=== PATIENT | male | born 1945 | race Caucasian/White ===

== ENCOUNTER 2018-06-10 10:19 | Emergency (ER) | payer MEDICARE, SELFPAY ==
[2018-06-10 10:26] VITALS: BP 147/88; PULSE 64; RESP 15; TEMP 36.7; O2SAT 98
--- NOTE | 2018-06-10 10:40 | ED.GENADUL_ITS ---
Discharge Plan Disposition Patient Disposition: HOME Condition: Good Discharge Details Chief Complaint: PsychEval Clinical Impression: Depression Primary Care Provider: Bassem Dowling ED Provider: Humberto Corrales Home Meds and New Rx's Prescriptions: No Action fluoxetine 40 mg Capsule 40 mg PO DAILY RF: 0 bupropion HCl [Wellbutrin SR] 100 mg Tablet Extended Release 12 Hr 100 mg PO DAILY RF: 0 temazepam 15 mg Capsule 15 mg PO HS PRN PRNRF: 0 levothyroxine 50 mcg Tablet 50 mcg PO DAILY RF: 0 lisinopril-hydrochlorothiazide 10-12.5 mg Tablet 1 tab PO DAILY RF: 0 Discharge Instructions Instructions: Depression (ED) Additional Instructions: Please continue to take her home medications. Please follow-up with your family doctor for evaluation of your thyroid levels. Please follow-up with your psychiatrist/psychologist as soon as possible for reassessment on Tuesday. If you notice any worsening of your symptoms, or any new symptoms such as wanting to take your life, wanting to hurt someone else, vomiting, diarrhea, fever, chills, shortness of breath, chest pain, numbness, weakness, or fainting , please return immediately to the emergency department for reevaluation. Please follow up with your primary care provider as soon as possible for reassessment and reevaluation. As always, it was a pleasure participating in your medical care today. Referrals: Bassem Dowling [Primary Care Provider] - Medical Decision Making This is a very pleasant 73-year-old male who presents for evaluation of depression. The patient states that for the last 6 months he has felt very depressed, it is notably worsened over the last week and a half. The patient was started on Wellbutrin 1 week ago, and has been taking this as directed. He does have thyroid disease/hypothyroidism. He denies any homicidal or suicidal ideations. He feels like he is at the end of his rope. He demonstrates clear signs and symptoms of anhedonia, as well as concerning symptoms of notable depression without suicidality. We have consulted our mental health advisors to come to assess the patient. We will evaluate for any potential organic cause of his symptomatology. 11:42 AM The patient has been seen and assessed by his mental health specialist they feel that he is appropriate for discharge home with close follow-up on Tuesday. I do feel that this is appropriate as well. A safety plan has been put in place with his was at bedside, and the patient. The patient's TSH is slightly elevated, suggesting that his thyroid may be minimally underdose, however it is not notably elevated, I do not think that this is the cause of his symptomatology. I feel that is most likely psychologic and he is suffering from depression without suicidality. Patient will be discharged home with close follow-up with a psychiatrist, as well as his primary care provider. We discussed red flags for which to return the patient understands I have extensively reviewed the treatment plan and discharge instructions with the patient and their family. I have addressed all patient concerns at this time. The patient and family was made aware of what symptoms to monitor for that would warrant a return to the emergency department. Discussed the plan with the patient and family, they demonstrate verbal understanding and agreement with our assessment and plan at this time. HPI General Date/Time Provider Initiated Documentation: 06/10/18 10:22 . HPI Narrative: This is a 73-year-old male with a past medical history of hypothyroidism, anxiety, hypertension, and depression who is once admitted 10 years ago for depression and suicidal ideations. He presents today for depression. He states that for the last 6 months he has been feeling down, and is gradually been worsening. Roughly 1 week ago he was started on Wellbutrin in addition to his regular fluoxetine. He has been taking his levothyroxine and hypertension medications as directed. He states that in spite of this new medication he feels quite a bit worse, he states that he does not have any energy to do anything throughout the day. He does not want to wake up, feed himself, bathe or take care of himself. He has lost interest in all things that bring jillian to him. He clearly demonstrates signs and symptoms concerning for anhedonia. He denies any current suicidal or homicidal ideations. He denies any plan for ending his life. States that he has been taking his medications as directed. He has had ECT therapy in the past, which has been beneficial. This is performed at [facility]. He denies any previous surgeries. He denies any pertinent family history. He has no other complaints at this time. Related Data Home Medications Medication Instructions Recorded Confirmed bupropion HCl [Wellbutrin SR] 100 mg PO DAILY 06/10/18 06/10/18 fluoxetine 40 mg PO DAILY 06/10/18 06/10/18 levothyroxine 50 mcg PO DAILY 06/10/18 06/10/18 lisinopril-hydrochlorothiazide 1 tab PO DAILY 06/10/18 06/10/18 temazepam 15 mg PO HS PRN PRN 06/10/18 06/10/18 Allergies Allergy/AdvReac Type Severity Reaction Status Date / Time phenelzine sulfate Allergy Intermediate Unverified 06/10/18 10:29 [From Nardil] codeine Allergy Unverified 06/10/18 10:29 MAOI CLASS Allergy Uncoded 06/10/18 10:29 General Stated Complaint: PsychEval ESTIVEN: 2 Review of Systems Review of Systems 10 point review of systems was performed, pertinent positives and negatives are noted in the history of present illness. [facility] Social History Smoking/Tobacco Use Status: Never Exam Narrative Exam Narrative: 1.Const: Well-nourished, Well-developed, appearing stated age 2.Eyes: PERRL, no conjunctival injection, and symmetrical lids. 3.ENT: Atraumatic external nose and ears. Moist MM. Neck: Symmetric, trachea midline, No thyromegaly. No thyroid nodules. 4.CVS: +S1/S2, No murmurs or gallops. Peripheral pulses 2+ and equal in all extremities. Brisk capillary refill in all extremities. 5.RESP: Unlabored respiratory effort. Clear to auscultation bilaterally. No wheezes rales or rhonchi 6.GI: Soft, Nontender/Nondistended, No hepatosplenomegaly. No guarding or rebound. 7.MSK: Normocephalic/Atraumatic, Extremities w/o deformity or ttp No cyanosis or clubbing, Normal movement of all extremities 8.Skin: Warm, Dry. No rashes or lesions. 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 Sensation grossly intact, no focal neurologic deficits. 10.Psych: (AAO) x3. Mood and affect is appear normal at this time. Certainly no signs of jaylen, severe anxiety.
[2018-06-10 10:49] LABS: Bilirubin Negative (Negative); Blood Negative (Negative); Clarity Clear; Glucose Negative (Negative); Ketones Negative (Negative); Leukocyte Esterase Negative (Negative); Nitrite Negative (Negative); Specific Gravity 1.015 (1.005-1.025); Urobilinogen 0.2 EU/dL (Up TO 0.2); pH 6.5 (5-8)
[2018-06-10 11:01] LABS: *AMPHETAMINES SCREEN URINE Negative (Negative); *BARBITURATES SCREEN URINE Negative (Negative); *BENZODIAZEPINES SCREEN URINE POSITIVE (Negative); Cannabinoids THC Negative (Negative); Cocaine Screen,Urine Negative (Negative); METHADONE URINE SCREEN Negative (Negative); OPIATES URINE SCREEN Negative (Negative)
[2018-06-10 11:04] LABS: Tricyclic Antidepressants Negative (Negative)
[2018-06-10 11:05] LABS: Abs Immature Grans 0.02 k/cumm (0.0-0.09); Absolute Basophil Count 0.02 k/cumm (0.0-0.2); Absolute Eosinophil Count 0.12 k/cumm (0.0-0.7); Absolute Lymphocyte Count 2.71 k/cumm (1.2-3.4); Absolute Monocyte Count 0.49 k/cumm (0.11-0.7); Absolute Neutrophil Count 4.55 k/cumm (1.2-6.7); Basophils % 0.3; Eosinophils % 1.5; HCT 47.1 % (40.0-50.0); HGB 17.2 g/dL (13.5-17.5); Immature Grans % 0.3; Lymphocytes % 34.3; Mean Corp. HGB Concentration 36.5 g/dL (32.0-36.0); Mean Corpuscular Hemoglobin 30.8 pg (27.0-33.0); Mean Corpuscular Volume 84.4 fL (80-95); Mean Platelet Volume 8.8 fL (8.0-11.0); Monocytes % 6.2; Neutrophils % 57.4; Platelet Count 253 x1000/uL (130-400); RBC 5.58 m/cumm (4.50-6.00); RBC Distribution Width 12.4 % (11.8-14.1); White Blood Cell Count 7.91 k/cumm (4.4-10.8)
[2018-06-10 11:23] LABS: Salicylate < 2.8 mg/dL (2.8-20.0)
[2018-06-10 11:26] LABS: ALT 26 U/L (12-78); AST 16 U/L (15-37); Albumin 4.2 g/dL (3.4-5.0); Alkaline Phosphatase 99 U/L (46-116); Anion Gap 4.7 mmol/L (3-11); BUN 23 mg/dL (7-18); Bilirubin, Total 0.7 mg/dL (0.2-1.0); CO2 31.3 mmol/L (21.0-32.0); Calcium 9.2 mg/dL (8.5-10.1); Chloride 101 mmol/L (98-107); Glucose 90 mg/dL (70-100); Potassium 4.6 mmol/L (3.5-5.1); Sodium 137 mmol/L (136-145); TSH 4.22 uIU/mL (0.358-3.74); Total Protein 7.2 g/dL (6.4-8.2)
[2018-06-10 11:29] LABS: Acetaminophen < 2 ug/mL (10-30)
[2018-06-10 11:33] LABS: ETHANOL BLOOD < 3.0 mg/dL (<3)
--- NOTE | 2018-06-10 15:48 | W.INMHPGNOTE ---
Mental Health Crisis Note Presenting Issue How did you arrive at the ED and why did you come: Patient arrived with his due to increase anxiety and depressive symptoms. Precipitating Factors Patient does not report suicidal or homicidal ideation. He has deep depression and is at his wit's end. Disposition BEHAVIOR: calm and complacent EYE CONTACT: good MOOD: depressed AFFECT: flat APPETITE: poor SLEEP(trouble falling/staying asleep: not reported Plan This patient is on a second week of his first being prescribed wellbutrin. He has become increasingly depressed and lost interest in his normal activities. He has been referred to a psychiatric nurse practioner at [facility] and he has an appointment with a therapist in community. He has care and support of his and he is willing to go home and wait until his scheduled appointments. This clinician spoke of all options available to help him if giuseppe faye chooses to go to a psychiatric facility after trying outpatient treatment. He will go home with the support of his and this clinician will call to check in , at their approval, with him tomorrow and make referral to [facility] as well. Signature Clinician's Name/Title: Katya Fox [facility], [facility] Emergency Services Clinician
--- NOTE | 2018-06-10 15:54 | MHPN_ITS ---
Mental Health Crisis Note Presenting Issue How did you arrive at the ED and why did you come: Patient arrived with his due to increase anxiety and depressive symptoms. Precipitating Factors Patient does not report suicidal or homicidal ideation. He has deep depression and is at his wit's end. Disposition BEHAVIOR: calm and complacent EYE CONTACT: good MOOD: depressed AFFECT: flat APPETITE: poor SLEEP(trouble falling/staying asleep: not reported Plan This patient is on a second week of his first being prescribed wellbutrin. He has become increasingly depressed and lost interest in his normal activities. He has been referred to a psychiatric nurse practioner at [facility] and he has an appointment with a therapist in community. He has care and support of his and he is willing to go home and wait until his scheduled appointments. This clinician spoke of all options available to help him if giuseppe faye chooses to go to a psychiatric facility after trying outpatient treatment. He will go home with the support of his and this clinician will call to check in , at their approval, with him tomorrow and make referral to [facility] as well. Signature Clinician's Name/Title: Katya Fox [facility], [facility] Emergency Services Clinician
== END 2018-06-10 12:00 | disposition home or self-care (01) ==
PROVIDERS: Emergency Provider Student in an Organized Health Care Education/Training Program; PCP Family Medicine
DX: F32.9 Major depressive disorder, single episode, unspecified (principal); I10 Essential (primary) hypertension
CPT/HCPCS: 80053; 80307; 99282; 80320; 80329; 81003; 84443; 85025

== ENCOUNTER 2018-08-17 15:19 | Outpatient (CLI) | payer MEDICARE, SELFPAY ==
[2018-08-17 17:32] LABS: Vitamin D 25 Total 29.9 ng/ml (30-100)
[2018-08-17 17:34] LABS: Folate 13.2 ng/mL (8.6-20.0); Vitamin B12 529 pg/mL (193-986)
== END 2018-08-17 15:39 ==
PROVIDERS: PCP Family Medicine; Visit Provider Nurse Practitioner Family
DX: E03.9 Hypothyroidism, unspecified (principal); E55.9 Vitamin D deficiency, unspecified; F33.9 Major depressive disorder, recurrent, unspecified; F41.1 Generalized anxiety disorder; F51.5 Nightmare disorder; R45.851 Suicidal ideations
CPT/HCPCS: 36415; 82306; 82607; 82746

== ENCOUNTER 2018-10-16 14:56 | Emergency (ER) | payer MEDICARE, SELFPAY ==
[2018-10-16 15:09] VITALS: BP 142/71; PULSE 70; RESP 16; TEMP 36.8; O2SAT 97
--- NOTE | 2018-10-16 15:23 | DI.CT_ITS ---
SYMPTOM/DIAGNOSIS: 7-8 FT FALL, RT THORAX /ABD PAIN, SEVERE CHEST CT: No rib or spine fracture is seen. No evidence of pneumothorax. There is mild respiratory motion, independent changes at the posterior lung bases. No pleural or pericardial effusions are seen. The heart and great vessels appear intact. IMPRESSION: Negative chest CT. ABDOMEN AND PELVIC CT: The liver, gallbladder, spleen, pancreas, kidneys and adrenals appear intact. An 8 mm cyst is incidentally noted at the lower pole of the right kidney. There is no free air or free fluid. The bladder is unremarkable. The prostate is enlarged. No fracture is identified. Degenerative changes are seen, greatest in the lumbar spine. IMPRESSION; No acute abnormality.
--- NOTE | 2018-10-16 15:23 | DI.CT_ITS ---
SYMPTOM/DIAGNOSIS: 7-8 FT FALL, RT THORAX/ABD PAIN, SEVERE NONCONTRAST HEAD CT: There is no evidence of skull fracture, intracranial hemorrhage. The ventricles are normal in size. There are no significant white matter changes. There is mild atrophy consistent with the patient's age. The sinuses and mastoid air cells appear clear. IMPRESSION: Negative head CT CT CERVICAL SPINE: There is no evidence of fracture or subluxation. Degenerative changes are present as well. There is bilateral neural foraminal narrowing greatest at C-6,7. There is no paraspinal hematoma. IMPRESSION: Degenerative changes. No acute abnormality.
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
[2018-10-16] MEDS: Ketorolac 15 MG/ML VIAL 7.5 MG IVP (15:38)
[2018-10-16] MEDS: Lactated Ringers 1,000 ML 150 ML IV (15:41)
[2018-10-16 15:47] LABS: Abs Immature Grans 0.04 k/cumm (0.0-0.09); Absolute Basophil Count 0.03 k/cumm (0.0-0.2); Absolute Eosinophil Count 0.08 k/cumm (0.0-0.7); Absolute Lymphocyte Count 2.02 k/cumm (1.2-3.4); Absolute Monocyte Count 0.72 k/cumm (0.11-0.7); Absolute Neutrophil Count 7.98 k/cumm (1.2-6.7); Basophils % 0.3; Eosinophils % 0.7; HCT 44.6 % (40.0-50.0); HGB 16.3 g/dL (13.5-17.5); Immature Grans % 0.4; Lymphocytes % 18.6; Mean Corp. HGB Concentration 36.5 g/dL (32.0-36.0); Mean Corpuscular Hemoglobin 30.1 pg (27.0-33.0); Mean Corpuscular Volume 82.3 fL (80-95); Monocytes % 6.6; Neutrophils % 73.4; Platelet Count 210 x1000/uL (130-400); RBC 5.42 m/cumm (4.50-6.00); RBC Distribution Width 12.9 % (11.8-14.1); White Blood Cell Count 10.87 k/cumm (4.4-10.8)
[2018-10-16 16:02] LABS: ALT 36 U/L (12-78); AST 30 U/L (15-37); Albumin 4.3 g/dL (3.4-5.0); Alkaline Phosphatase 97 U/L (46-116); Anion Gap 7.7 mmol/L (3-11); BUN 24 mg/dL (7-18); Bilirubin, Total 0.4 mg/dL (0.2-1.0); CO2 31.3 mmol/L (21.0-32.0); CREATININE 1.21 mg/dL (0.70-1.30); Calcium 9.1 mg/dL (8.5-10.1); Chloride 101 mmol/L (98-107); Estimated GFR 58.78 (mL/min/1.73m2); Glucose 98 mg/dL (70-100); Magnesium 2.2 mg/dL (1.8-2.4); Sodium 140 mmol/L (136-145); Total Protein 7.2 g/dL (6.4-8.2)
[2018-10-16] MEDS: Omnipaque 350 MG/ML 100 ML BTL IJ (16:15)
[2018-10-16 16:34] LABS: PTT Activated 21.9 sec (21.0-31.4); Prothrombin Time 10.4 sec (9.3-11.0)
--- NOTE | 2018-10-16 16:48 | DI.VRAD_ITS ---
EXAM: CT Head Without Contrast EXAM DATE/TIME: 10/16/2018 3:25 PM CLINICAL HISTORY: 73 years old, male; Injury or trauma; Fall; Initial encounter; Patient HX: 7-8 foot fall TECHNIQUE: Axial computed tomography images of the head/brain without contrast. Coronal and sagittal reformatted images were created and reviewed. COMPARISON: No relevant prior studies available. FINDINGS: Brain: Ventricles and the cortical sulci are within normal limits for the patient's age. There is no evidence of acute hemorrhage, mass or shift. There is no evidence of an acute cortical or major vascular territory infarct. There is minimal low attenuation involving the periventricular white matter which may be related to remote small vessel ischemic change/microangiopathy. No abnormal extra-axial collections are identified. Ventricles: Within normal limits. Bones/joints: There is no acute calvarial fracture Sinuses: There is no significant sinus opacification, fluid level nor intrasinus hemorrhage. Mastoid air cells: There is no significant mastoid opacification. Soft tissues: Subcutaneous soft tissues are unremarkable. Vasculature: Mild intracranial vascular calcification is noted. IMPRESSION: No acute findings EXAM: CT Cervical Spine Without Contrast EXAM DATE/TIME: 10/16/2018 3:25 PM CLINICAL HISTORY: 73 years old, male; Injury or trauma; Fall; Initial encounter; Patient HX: 7-8 foot fall TECHNIQUE: Axial computed tomography images of the cervical spine without intravenous contrast. Coronal and sagittal reformatted images were created and reviewed. COMPARISON: No relevant prior studies available. FINDINGS: Vertebrae: There is scoliosis. It is convex to the right in the thoracic spine. There is mild reversal of the cervical lordosis. There is mild anterolisthesis of C2 with respect to C3. There is no evidence of an acute fracture. There is no decrease of vertebral body height. There is no acute or destructive bony abnormality identified within the cervical spine. Discs/Spinal canal/Neural foramina: There is multilevel disc space narrowing within the cervical spine. Disc space narrowing is present at multiple levels but appears most prominent at C4-5 through C7-T1. There are disc osteophyte complexes, spondylitic changes of the endplates, uncovertebral and facet arthropathy. There is narrowing of the canal/stenosis at the level of the disc spaces. This is also present at multiple levels but spinal stenosis appears most prominent at C5-C6 where disc osteophyte complex is eccentric to the right posteriorly. Degenerative changes also lead to multilevel foraminal narrowing. Foraminal narrowing is present at multiple levels but appears slightly greater on the right than the left particularly at C4-5, C6-7, there is bilateral foraminal narrowing noted at C5-6 and C7-T1. Soft tissues: The exam was not tailored to evaluate the soft tissues of the neck. There is no evidence of discrete soft tissue mass. Lungs: No significant abnormality is identified at the lung apices. There is mild dependent atelectasis. Vasculature: Vascular calcification is noted at the carotid bifurcations. IMPRESSION: Cervical spondylosis, disc disease. No acute fracture identified. Degenerative changes lead to multilevel spinal and foraminal stenosis as described above. Dictated and Authenticated by: Shanon Hernandez MD. Ordering:TYRONE Watson MD
--- NOTE | 2018-10-16 16:56 | DI.VRAD_ITS ---
EXAM: CT Chest With Contrast EXAM DATE/TIME: 10/16/2018 4:19 PM CLINICAL HISTORY: 73 years old, male; Injury or trauma; Fall; Initial encounter; Patient HX: 7-8 foot fall, r thorax/abd pain, severe TECHNIQUE: Axial computed tomography images of the chest with intravenous contrast. Coronal and sagittal reformatted images were created and reviewed. COMPARISON: No relevant prior studies available. FINDINGS: Lungs: Bilateral dependent atelectasis. Pleural space: Normal. No pneumothorax. No pleural effusion. Heart: Normal. No cardiomegaly. No pericardial effusion. Aorta: Normal. No aortic aneurysm. Lymph nodes: Unremarkable. No enlarged lymph nodes. Bones/joints: Unremarkable. No acute fracture. Soft tissues: Unremarkable. IMPRESSION: No acute abnormality. EXAM: CT Abdomen and Pelvis With Contrast EXAM DATE/TIME: 10/16/2018 4:19 PM CLINICAL HISTORY: 73 years old, male; Injury or trauma; Fall; Initial encounter; Patient HX: 7-8 foot fall, r thorax/abd pain, severe TECHNIQUE: Axial computed tomography images of the abdomen and pelvis with intravenous contrast. Coronal and sagittal reformatted images were created and reviewed. COMPARISON: No relevant prior studies available. FINDINGS: Lower thorax: No acute findings. ABDOMEN: Liver: Normal. No mass. Gallbladder and bile ducts: Normal. No calcified stones. No ductal dilation. Pancreas: Normal. No ductal dilation. Spleen: Normal. No splenomegaly. Adrenals: Normal. No mass. Kidneys and ureters: 8 mm cyst at the lower pole of right kidney. Stomach and bowel: Diverticulosis of the sigmoid colon. Appendix: No evidence of appendicitis. PELVIS: Bladder: Unremarkable as visualized. Reproductive: Prostate is enlarged and measures 5.4 x 4.3 cm. Prostate is heterogeneous. ABDOMEN and PELVIS: Intraperitoneal space: Normal. No free air. No significant fluid collection. Bones/joints: Degenerative changes of the spine. Soft tissues: Unremarkable. Vasculature: Normal. No abdominal aortic aneurysm. Lymph nodes: Normal. No enlarged lymph nodes. IMPRESSION: No acute abdominal or pelvic abnormality. Dictated and Authenticated by: Sal Sethi MD. Ordering:TYRONE Watson MD
[2018-10-16] MEDS: Lidocaine 5% Patch 1 PATCH TP (17:09)
== END 2018-10-16 17:58 | disposition home or self-care (01) ==
PROVIDERS: Emergency Provider Emergency Medicine; PCP Family Medicine
DX: S20.211A Contusion of right front wall of thorax, initial encounter (principal); R10.11 Right upper quadrant pain; V00.321A Fall from snow-skis, initial encounter
CPT/HCPCS: 36415; 74177; 80053; 96361; 96374; 99285; 70450; 71260; 72125; 83735; 85025; 85610; 85730; 99284; J1885; J3490

== ENCOUNTER → 2018-11-21 10:59 | Outpatient (BNVA) | payer MEDICARE, SELFPAY | PROVIDERS: PCP Family Medicine; Referring Provider Family Medicine; Visit Provider Orthopaedic Surgery | DX: M79.602 Pain in left arm (principal); R20.0 Anesthesia of skin | CPT/HCPCS: 99213; 99214 ==

== ENCOUNTER 2018-11-23 00:34 | Outpatient (CLI) | payer MEDICARE, OTHER, SELFPAY ==
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
== END 2018-11-23 00:54 ==
PROVIDERS: PCP Family Medicine; Visit Provider Orthopaedic Surgery
DX: M79.602 Pain in left arm (principal); S19.80XD Other specified injuries of unspecified part of neck, subsequent encounter; R20.2 Paresthesia of skin; M50.31 Other cervical disc degeneration, high cervical region; M50.322 Other cervical disc degeneration at C5-C6 level; M50.323 Other cervical disc degeneration at C6-C7 level
CPT/HCPCS: 72141

== ENCOUNTER → 2018-11-30 08:40 | Outpatient (BNVA) | payer MEDICARE, OTHER, SELFPAY | PROVIDERS: PCP Family Medicine; Referring Provider Family Medicine; Visit Provider Orthopaedic Surgery | DX: S16.1XXD Strain of muscle, fascia and tendon at neck level, subsequent encounter (principal); V00.321D Fall from snow-skis, subsequent encounter | CPT/HCPCS: 99213 ==

== ENCOUNTER 2019-03-01 13:43 | Outpatient (CLI) | payer MEDICARE, OTHER, SELFPAY ==
[2019-03-02 10:14] LABS: PSA, Screening 2.4 ng/ml (0-6.5)
== END 2019-03-01 14:03 ==
PROVIDERS: PCP Family Medicine; Visit Provider Urology
DX: Z12.5 Encounter for screening for malignant neoplasm of prostate (principal)
CPT/HCPCS: 36415; 84153

== ENCOUNTER 2019-06-27 11:24 | Outpatient (REF) | payer MEDICARE, OTHER, SELFPAY ==
[2019-06-27 15:32] LABS: Lithium 0.22 mmol/L (0.60-1.20)
== END 2019-06-27 11:44 ==
LOC: NCHCN 11:24
PROVIDERS: PCP Family Medicine; Visit Provider Nurse Practitioner Family
DX: F43.10 Post-traumatic stress disorder, unspecified (principal); F33.41 Major depressive disorder, recurrent, in partial remission; F41.1 Generalized anxiety disorder; Z51.81 Encounter for therapeutic drug level monitoring; Z79.899 Other long term (current) drug therapy
CPT/HCPCS: 36415; 80178

== ENCOUNTER 2019-08-23 10:42 | Outpatient (REF) | payer MEDICARE, OTHER, SELFPAY ==
[2019-08-23 11:36] LABS: Lithium 0.23 mmol/L (0.60-1.20)
== END 2019-08-23 11:02 ==
LOC: NCHCN 10:42
PROVIDERS: PCP Family Medicine; Visit Provider Nurse Practitioner Family
DX: F33.41 Major depressive disorder, recurrent, in partial remission (principal); Z51.81 Encounter for therapeutic drug level monitoring
CPT/HCPCS: 80178

== ENCOUNTER → 2019-09-25 08:09 | Outpatient (BNVA) | payer MEDICARE, OTHER, SELFPAY | PROVIDERS: PCP Family Medicine; Referring Provider Nurse Practitioner Family; Visit Provider Psychiatry & Neurology Neurology | DX: G24.01 Drug induced subacute dyskinesia (principal); G25.71 Drug induced akathisia | CPT/HCPCS: 99204; 99215 ==

== ENCOUNTER 2019-09-26 22:13 | Outpatient (REF) | payer MEDICARE, SELFPAY ==
[2019-09-26 20:59] LABS: HCT 43.2 % (40.0-50.0); HGB 15.1 g/dL (13.5-17.5); Mean Corpuscular Hemoglobin 29.5 pg (27.0-33.0); Mean Corpuscular Volume 84.4 fL (80-95); Mean Platelet Volume 9.1 fL (8.0-11.0); Platelet Count 214 x1000/uL (130-400); RBC 5.12 m/cumm (4.50-6.00); RBC Distribution Width 13.3 % (11.8-14.1); White Blood Cell Count 7.68 k/cumm (4.4-10.8)
[2019-09-26 21:16] LABS: ALT 44 U/L (16-63); AST 31 U/L (15-37); Albumin 4.3 g/dL (3.4-5.0); Alkaline Phosphatase 99 U/L (46-116); Anion Gap 9.8 mmol/L (3-11); BUN 33 mg/dL (7-18); Bilirubin, Total 0.4 mg/dL (0.2-1.0); CO2 27.2 mmol/L (21.0-32.0); CREATININE 1.15 mg/dL (0.70-1.30); Calcium 8.7 mg/dL (8.5-10.1); Chloride 105 mmol/L (98-107); Glucose 88 mg/dL (74-106); Potassium 4.1 mmol/L (3.5-5.1); Sodium 142 mmol/L (136-145); TSH (W/Ref FT4) 4.53 uIU/mL (0.36-3.74); Total Protein 6.6 g/dL (6.4-8.2)
[2019-09-26 21:32] LABS: FREE T4 0.71 ng/dL (0.76-1.46)
== END 2019-09-26 22:33 ==
LOC: NCHCN 22:13
PROVIDERS: PCP Family Medicine; Visit Provider Family Medicine
DX: E03.9 Hypothyroidism, unspecified (principal); Z79.899 Other long term (current) drug therapy; B35.3 Tinea pedis
CPT/HCPCS: 80053; 85027; 84439; 84443

== ENCOUNTER 2019-09-27 02:23 | Outpatient (CLI) | payer MEDICARE, SELFPAY ==
--- NOTE | 2019-09-27 13:59 | DI.RAD_ITS ---
EXAM: XR CHEST 2V PA LATERAL XR CHEST 2V PA LATERAL CLINICAL HISTORY: COUGH X2 MOS, R05, ACUTE BRONCHITIS WITH BRONCHOSPASM, J20.9 COUGH X2 MOS, R05, ACUTE BRONCHITIS WITH BRONCHOSPASM, J20.9 TECHNIQUE: 2D digital imaging was performed. COMPARISON: CHEST 2 VIEWS PA,LAT from 01/19/2013 FINDINGS: The heart is not enlarged. The lungs are clear and well expanded. No pleural effusion seen. Mediastin al contours appear intact. IMPRESSION: Normal chest
== END 2019-09-27 02:43 ==
PROVIDERS: PCP Family Medicine; Visit Provider Family Medicine
DX: R05 Cough (principal); J20.9 Acute bronchitis, unspecified
CPT/HCPCS: 71046

== ENCOUNTER 2020-06-16 15:58 | Outpatient (REF) | payer MEDICARE, SELFPAY ==
[2020-06-18 14:14] LABS: Patient Race White; SARS-CoV-2 RNA Undetected (Undetected); SARS-CoV-2 Specimen Source Nasopharynx
== END 2020-06-16 16:18 ==
LOC: NCHCN 15:58
PROVIDERS: PCP Family Medicine; Visit Provider Nurse Practitioner Family
DX: R05 Cough (principal)
CPT/HCPCS: U0003

== ENCOUNTER 2020-07-24 11:06 | Outpatient (REF) | payer MEDICARE, SELFPAY ==
[2020-07-24 19:18] LABS: Calculated LDL 59 mg/dL (<100); Cholesterol 140 mg/dL (<200); HDL Cholesterol 68 mg/dL (40-60); TSH 1.85 uIU/mL (0.36-3.74); Triglyceride 65 mg/dL (<150)
[2020-07-24 19:31] LABS: Vitamin D 25 Total 34.8 ng/ml (30-100)
== END 2020-07-24 11:26 ==
LOC: NCHCN 11:06
PROVIDERS: Nurse Practitioner Family; PCP Family Medicine; Visit Provider Family Medicine
DX: E78.5 Hyperlipidemia, unspecified (principal); E03.9 Hypothyroidism, unspecified; R53.83 Other fatigue
CPT/HCPCS: 80061; 82306; 84443

== ENCOUNTER 2021-03-17 14:47 | Outpatient (CLI) | payer MEDICARE, SELFPAY ==
--- NOTE | 2021-03-17 14:30 | DI.RAD_ITS ---
Exam(s) XR SHOULDER RT COMPLETE 2+V EXAM: XR SHOULDER RT COMPLETE 2+V CLINICAL HISTORY: right shoulder pain TECHNIQUE: COMPARISON: No exams were available for comparison FINDINGS: Two views were obtained. There is severe narrowing of the cartilaginous joint space of the glenohume ral joint. There are very prominent marginal osteophytes of the glenoid and humeral head. There is mild subchondral sclerosis of the adjacent bones. Osseous loose bodies noted adjacent to acromioclavicular joint and distal end of the clavicle is elev ated relative to the acromion. Small ossific body also seen at the location of the coracoid clavicu lar ligament. IMPRESSION: Severe degenerative changes as described above. RADIATION DOSE DELIVERED: Total DLP
--- NOTE | 2021-03-17 14:30 | DI.RAD_ITS ---
Exam(s) XR SHOULDER LT COMPLETE 2+V EXAM: XR SHOULDER LT COMPLETE 2+V CLINICAL HISTORY: left shoulder pain TECHNIQUE: COMPARISON: CR XR SHOULDER RT COMPLETE 2+V from 03/17/2021 FINDINGS: Two views were obtained. There is severe loss of the cartilaginous joint space of the glenohumeral j oint prominent marginal osteophytes of humeral head and glenoid. There is mild subchondral sclerosis of the adjacent bones. There are moderate hypertrophic degenerative changes of the acromioclavicula r joint noted as well. IMPRESSION: Degenerative changes of glenohumeral and acromioclavicular joint as described above. RADIATION DOSE DELIVERED: Total DLP
== END 2021-03-17 14:48 | disposition home or self-care (01) ==
LOC: DIORS 14:47
PROVIDERS: PCP Nurse Practitioner Family; Referring Provider Nurse Practitioner Family; Visit Provider Student in an Organized Health Care Education/Training Program
DX: M19.011 Primary osteoarthritis, right shoulder (principal); M19.012 Primary osteoarthritis, left shoulder; M25.511 Pain in right shoulder; M25.512 Pain in left shoulder
CPT/HCPCS: 99203; 99213; 73030

== ENCOUNTER 2021-03-27 21:22 | Emergency (ER) | payer MEDICARE, SELFPAY ==
[2021-03-27 21:26] VITALS: BP 166/104; PULSE 68; RESP 16; TEMP 36.8; O2SAT 96
--- NOTE | 2021-03-27 22:15 | DI.RAD_ITS ---
Exam(s) XR TIB/FIB RT EXAM: XR TIB/FIB RT CLINICAL HISTORY: trauma, right lower leg pain. TECHNIQUE: 2D digital imaging was performed. COMPARISON: No exams were available for comparison FINDINGS: BONES: No acute fracture is present. No bony destructive lesion is seen. Visualized portion of knee a nd ankle joints are unremarkable. There are degenerative changes in the knee. SOFT TISSUE: A BB was used to addy the site of injury. No radiopaque foreign bodies are identified. No air is seen in the soft tissues. IMPRESSION: No acute abnormality. DATA REPOSITORY: RADIATION DOSE DELIVERED:
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
--- NOTE | 2021-03-27 23:59 | DI.VRAD_ITS ---
PROCEDURE INFORMATION: Exam: XR Right Tibia and Fibula Exam date and time: 03/27/2021 10:16 PM Age: 75 years old Clinical indication: Other: Trauma, right lower leg pain; Patient HX: Dropped aluminum ladder on leg a week ago, bb on lateral to addy lac TECHNIQUE: Imaging protocol: XR Right tibia and fibula. Views: 2 views. COMPARISON: No relevant prior studies available. FINDINGS: Bones/joints: No evidence of fracture. Knee and ankle are appropriately located. Narrowing and osteophytes noted in the medial compartment of the knee. Soft tissues: Mild soft tissue swelling noted in the calf. Laceration marked with a BB. Negative for soft tissue air at the site. IMPRESSION: No acute osseous abnormality. Dictated and Authenticated by: Nico Muñoz MD. Ordering:MARTA Monroy MD
== END 2021-03-28 00:30 | disposition home or self-care (01) ==
PROVIDERS: Emergency Provider Student in an Organized Health Care Education/Training Program; PCP Nurse Practitioner Family
DX: S81.811A Laceration without foreign body, right lower leg, initial encounter (principal); W45.8XXA Other foreign body or object entering through skin, initial encounter
CPT/HCPCS: 99283; 73590; 99282

== ENCOUNTER 2021-03-29 07:38 | Emergency (ER) | payer MEDICARE, SELFPAY ==
[2021-03-29 07:43] VITALS: BP 161/74; PULSE 67; RESP 16; TEMP 36.2; O2SAT 98
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
--- NOTE | 2021-03-29 08:45 | DI.RAD_ITS ---
Exam(s) XR TIB/FIB RT EXAM: XR TIB/FIB RT CLINICAL HISTORY: pain, injury fri, repeat xray. TECHNIQUE: 2D digital imaging was performed. COMPARISON: CR,XR XR TIB/FIB RT from 03/27/2021 FINDINGS: BONES: No acute fracture is present. No bony destructive lesion is seen. Degenerative changes of the knee. SOFT TISSUE: Normal. IMPRESSION: No acute fracture or dislocation. DATA REPOSITORY: RADIATION DOSE DELIVERED:
[2021-03-29] MEDS: Cephalexin 500 MG CAP PO (08:59)
[2021-03-29] MEDS: Doxycycline Hyclate 100 MG CAP PO (08:59)
[2021-03-29 09:46] VITALS: BP 140/78; PULSE 63; RESP 18; TEMP 36.2; O2SAT 97
[2021-03-29 09:59] VITALS: BP 140/78; PULSE 63; RESP 18; TEMP 36.2; O2SAT 97
--- NOTE | 2021-03-29 10:11 | DI.VRAD_ITS ---
PROCEDURE INFORMATION: Exam: XR Right Tibia and Fibula Exam date and time: 03/29/2021 8:49 AM Age: 75 years old Clinical indication: Injury or trauma; Other: Ladder fell on to the tib-fib/recheck images; Swelling (edema); Lower leg; Right; Injury details: Prior images 03/27/2021 TECHNIQUE: Imaging protocol: XR Right tibia and fibula. Views: 2 views. COMPARISON: CR XR TIB/FIB RT 03/27/2021 10:44 PM FINDINGS: Bones/joints: No acute fracture or dislocation. Degenerative changes of the knee. Soft tissues: Unremarkable. IMPRESSION: No acute fracture or dislocation. Dictated and Authenticated by: Antonio Malik MD. Ordering:ALEKSANDRA Srivastava MD
== END 2021-03-29 09:58 | disposition home or self-care (01) ==
PROVIDERS: Emergency Provider Physician Assistant; PCP Nurse Practitioner Family
DX: L03.115 Cellulitis of right lower limb (principal); S80.11XD Contusion of right lower leg, subsequent encounter; W20.8XXD Other cause of strike by thrown, projected or falling object, subsequent encounter
CPT/HCPCS: 99283; 73590; 87070; 87205

== ENCOUNTER → 2021-04-01 08:19 | Outpatient (BNVA) | payer MEDICARE, SELFPAY | PROVIDERS: PCP Nurse Practitioner Family; Referring Provider Nurse Practitioner Family; Visit Provider Physician Assistant | DX: S80.11XA Contusion of right lower leg, initial encounter (principal); W20.8XXA Other cause of strike by thrown, projected or falling object, initial encounter; L03.115 Cellulitis of right lower limb | CPT/HCPCS: 99215 ==

== ENCOUNTER → 2021-04-08 08:00 | Outpatient (BNVA) | payer MEDICARE, SELFPAY | PROVIDERS: PCP Nurse Practitioner Family; Referring Provider Nurse Practitioner Family | DX: S80.11XA Contusion of right lower leg, initial encounter (principal); X58.XXXA Exposure to other specified factors, initial encounter | CPT/HCPCS: 99213 ==

== ENCOUNTER → 2021-04-22 08:03 | Outpatient (BNVA) | payer MEDICARE, SELFPAY | PROVIDERS: PCP Nurse Practitioner Family; Referring Provider Nurse Practitioner Family | DX: S80.11XD Contusion of right lower leg, subsequent encounter (principal); X58.XXXD Exposure to other specified factors, subsequent encounter | CPT/HCPCS: 99212 ==

== ENCOUNTER 2021-05-22 12:30 | Outpatient (REF) | payer MEDICARE, SELFPAY ==
[2021-05-22 14:16] LABS: Anion Gap 9.6 mmol/L (3-11); BUN 22 mg/dL (7-18); CO2 25.4 mmol/L (21.0-32.0); CREATININE 1.2 mg/dL (0.70-1.30); Calcium 8.7 mg/dL (8.5-10.1); Chloride 107 mmol/L (98-107); Estimated GFR 58.86 (mL/min/1.73m2); Glucose 94 mg/dL (74-106); Potassium 4.4 mmol/L (3.5-5.1); Sodium 142 mmol/L (136-145); TSH 2.95 uIU/mL (0.36-3.74); Vitamin B12 435 pg/mL (193-986)
== END 2021-05-22 12:31 | disposition home or self-care (01) ==
LOC: NCHCN 12:30
PROVIDERS: PCP Nurse Practitioner Family; Visit Provider Nurse Practitioner Family
DX: R20.2 Paresthesia of skin (principal); E03.9 Hypothyroidism, unspecified; L29.9 Pruritus, unspecified
CPT/HCPCS: 80048; 82607; 84443

== ENCOUNTER 2021-07-20 09:35 | Outpatient (REF) | payer MEDICARE, SELFPAY ==
[2021-07-20 16:29] LABS: Anion Gap 9.2 mmol/L (3-11); BUN 21 mg/dL (7-18); CO2 27.8 mmol/L (21.0-32.0); Calcium 9.1 mg/dL (8.5-10.1); Chloride 105 mmol/L (98-107); Glucose 102 mg/dL (74-106); Potassium 4.4 mmol/L (3.5-5.1); Sodium 142 mmol/L (136-145)
== END 2021-07-20 09:36 | disposition home or self-care (01) ==
LOC: NCHCN 09:35
PROVIDERS: PCP Nurse Practitioner Family; Visit Provider Nurse Practitioner Family
DX: I10 Essential (primary) hypertension (principal)
CPT/HCPCS: 80048

== ENCOUNTER 2021-08-06 01:26 | Outpatient (CLI) | payer MEDICARE, SELFPAY ==
--- NOTE | 2021-08-06 07:30 | DI.US_ITS ---
APPROVED REPORT EXAM: Comprehensive 2D, Doppler, and color-flow Echocardiogram Patient Location: Out-Patient Project Reservoir Engineer: Latisha Min RDCS (AE) Indications: Systolic heart murmur Other Information Study Quality: Adequate Conclusion Normal left ventricular wall thickness and chamber size. Estimated ejection fraction is 60%. Wall m otion is normal Normal right ventricular size and systolic function Both atria are normal in size Aortic valve is trileaflet and mildly sclerotic with trace regurgitation. There is no aortic stenosi s Normal mitral valve with trace to mild regurgitation Normal tricuspid valve with trace regurgitation. Estimated right ventricular systolic pressure is no rmal, 20 mmHg Dilated ascending aorta measuring 4.03 cm Wall motion Left Ventricle The left ventricle is normal size. The left ventricular systolic function is normal. The left ventric ular ejection fraction is within the normal range. There is normal left ventricular wall thickness. T here is normal LV segmental wall motion. There is no ventricular septal defect visualized. LVEF is 60 %. Right Ventricle The right ventricle is normal size. The right ventricular systolic function is normal. The RVSP is 20 .5 mmHg. Atria The left atrium size is normal. The right atrium size is normal. The interatrial septum is intact wit h no evidence for an atrial septal defect. Aortic Valve Aortic valve is calcified. Aortic valve is trileaflet. There is no aortic valvular stenosis. Trace ao rtic regurgitation. Mitral Valve The mitral valve is normal in structure. No evidence of mitral valve stenosis. Trace to mild mitral r egurgitation. Tricuspid Valve The tricuspid valve is normal in structure. There is no tricuspid valve stenosis. Trace tricuspid reg urgitation. Pulmonic Valve The pulmonary valve is normal in structure. There is no pulmonic valvular stenosis. There is no pulmo marlon valvular regurgitation. Great Vessels The aortic root is normal in size. The ascending aorta is mildly dilated.4.06 cm Aortic arch is not w ell visualized. IVC is normal in size and collapses >50% with inspiration. Pericardium There is no pericardial effusion. 2D Dimensions IVSD d PLAX 1.11 cm M: 0.6-1.2 LV Vol A2C d MOD 94.1 mL LVPW d PLAX 1.11 cm M: 0.6 - 1.2 LV Vol A4C d MOD 100.1 mL LVID d PLAX 4.88 cm M: 4.2 - 5.8 LA vol/ BSA A2C s A-L 21.2 mL/m2 LVDs 3.30 cm M: 2.5 - 4.0 LA vol/ BSA A4C s A-L 22.3 mL/m2 Ao Root d 3.23 cm M: 3.1 - 3.7 LA Vol/ BSA Biplane s A-L 21.8 mL/m2 RA Area A4C 16.51 cm2 LA Area A4C s MOD 15.97 cm2 RA Vol/ BSA A4C s A-L 22.9 mL/m2 LA Area A2C s MOD 15.53 cm2 Ao Asc Diam d 4.06 cm M: 2.6 - 3.4 LV EF A4C MOD 59.1 % LV EF Teichholz 60.2 % LV EF A2C MOD 60.3 % LVEF (Peterson's) 59.52 % M: 52 - 72 LV EF Biplane MOD 59.5 % LV Volume 73.42 mL M: 62 - 150 SV 57.79 mL LV Volume Index 37.65 mL/m2 M: 34 - 74 SV Index 29.61 mL/m2 LV Vol Biplane MOD 97.1 mL FS 32.15 % M-Mode TAPSE 2.23 cm (M/F) >1.7 LV Diastology MV E' medial 0.071 (>0.07 m/s) E/A Ratio 0.6 LV E/e MED 7.65 (<14) MV E Vmax 0.55 (0.4-1.3 m/s) MV E' lateral 0.086 (>0.1 m/s) MV A Vmax 0.85 (0.4-1.3 m/s) LV E/e LAT 6.35 (<14) MV E/A Ratio 0.64 MV E/E' medial 7.67 MV E/E' lateral 6.36 Aortic Valve LVOT Area 3.13 cm2 AoV Area Vmax 2.16 cm2 LVOT Vmax 0.93 m/s AoV Area/ BSA (Vmax) 1.11 cm2/m2 LVOT Mean Tony. 0.61 m/s LAZARO Mean Tony. 1.88 cm2 LVOT Peak Grad 3.4 mmHg LAZARO Mean Tony. Index 0.96 cm2/m2 LVOT Mean Grad 1.7 mmHg LVOT VTI 0.183 m LVOT Diam s 1.95 cm AoV Vmax 1.34 m/s Velocity Ratio 0.69 AoV Mean Tony. 1.01 m/s AoV Peak Grad 7.2 mmHg LVOT SV 57.31 mL AoV Mean Grad 4.5 mmHg AoV VTI 0.281 m AoV Area VTI 2.04 cm2 AoV Area/ BSA (VTI) 1.04 cm/m2 Mitral Valve MV DT 336 (160-240 msec) MR Vmax 4.33 m/s MV PHT 97 msec MR VTI 1.685 m MV Area PHT 2.26 cm2 MR Peak Grad 75.2 mmHg MV VTI 0.291 m MR Mean Grad 58.9 mmHg MV Area VTI 1.97 (4.0-6.0 cm2) Pulmonary Valve PV Vmax 0.77 (0.5-1.5 m/s) RVOT Peak Gr. 1.10 mmHg PV Peak Grad 2.4 mmHg RVOT Mean Gr. 0.65 mmHg PV Mean Grad 1.2 mmHg RVOT VTI 0.121 m PV VTI 0.153 m RVOT Vmax 0.52 m/s Tricuspid Valve TR Peak Grad 17.5 mmHg TR Vmax 2.09 m/s RA Pressure 3.00 mmHg RVSP (TR) 20.5 mmHg
== END 2021-08-06 01:46 ==
PROVIDERS: PCP Nurse Practitioner Family; Visit Provider Nurse Practitioner Family
DX: R01.1 Cardiac murmur, unspecified (principal); I34.0 Nonrheumatic mitral (valve) insufficiency; I77.810 Thoracic aortic ectasia
CPT/HCPCS: 93306

== ENCOUNTER 2021-10-06 16:34 | Outpatient (REF) | payer MEDICARE, SELFPAY ==
[2021-10-06 21:12] LABS: Uric Acid 4.7 mg/dL (3.5-7.2)
== END 2021-10-06 16:35 | disposition home or self-care (01) ==
LOC: NCHCN 16:34
PROVIDERS: PCP Nurse Practitioner Family; Visit Provider Nurse Practitioner Family
DX: M79.675 Pain in left toe(s) (principal)
CPT/HCPCS: 84550

== ENCOUNTER 2021-10-13 10:10 | Outpatient (CLI) | payer MEDICARE, SELFPAY ==
--- NOTE | 2021-10-13 09:36 | DI.RAD_ITS ---
Exam(s) XR KNEE LT 3V AP,LAT,REGAN EXAM: XR KNEE LT 3V AP,LAT,REGAN CLINICAL HISTORY: pain. TECHNIQUE: 2D digital imaging was performed of the left knee. Three images were obtained. AP, late ral, Merchant and PA tunnel views were obtained. COMPARISON: No previous for comparison. FINDINGS: BONES: No acute fracture is present. No bony destructive lesion is seen. JOINTS: The knee is normally aligned. No joint effusion is seen. There is mild narrowing of the media l femoral tibial joint. Mild spurring is seen at the posterior patella. SOFT TISSUE: Atherosclerosis is present. IMPRESSION: Mild degenerative changes of the left knee. DATA REPOSITORY: RADIATION DOSE DELIVERED:
== END 2021-10-13 10:11 | disposition home or self-care (01) ==
LOC: DIORS 10:10
PROVIDERS: PCP Nurse Practitioner Family; Referring Provider Nurse Practitioner Family; Visit Provider Student in an Organized Health Care Education/Training Program
DX: M17.12 Unilateral primary osteoarthritis, left knee (principal); M25.562 Pain in left knee
CPT/HCPCS: 20610; 73562; J1040

== ENCOUNTER 2021-10-15 07:56 | Outpatient (CLI) | payer MEDICARE, SELFPAY | END 2021-10-15 07:57 | disposition home or self-care (01) | LOC: DI.CARD 07:57 | PROVIDERS: PCP Nurse Practitioner Family; Visit Provider Internal Medicine Cardiovascular Disease | DX: R69 Illness, unspecified (principal) | CPT/HCPCS: 93010 ==

== ENCOUNTER → 2021-10-15 11:07 | Outpatient (BNVA) | payer MEDICARE, SELFPAY | PROVIDERS: PCP Nurse Practitioner Family; Referring Provider Nurse Practitioner Family; Visit Provider Internal Medicine Cardiovascular Disease | DX: I34.0 Nonrheumatic mitral (valve) insufficiency (principal); I77.810 Thoracic aortic ectasia; I10 Essential (primary) hypertension | CPT/HCPCS: 99204; 99213 ==

== ENCOUNTER 2021-11-13 02:36 | Outpatient (CLI) | payer MEDICARE, SELFPAY ==
--- NOTE | 2021-11-13 07:30 | DI.MRI_ITS ---
Exam(s) MR LOWER JOINT LT WO EXAM: MR LOWER JOINT LT WO CLINICAL HISTORY: LEFT KNEE PAIN,oa,m17.12 TECHNIQUE: Multiplanar multisequence MRI of the knee was performed. COMPARISON: CR XR KNEE LT 3V AP,LAT,REGAN from 10/13/2021 FINDINGS: EFFUSION: There is a moderate-sized joint effusion. There is a Chang's cyst in medial popliteal brendon a which appears ruptured thin-extending down the medial gastrocnemius MARROW:There is no evidence of acute fracture. There are multiple degenerative subarticular cysts no kaelyn in the posterior aspect the tibial plateau subjacent to the PCL attachment site. Also some degen erative subarticular signal abnormality as described below. No ominous osseous lesions PATELLOFEMORAL COMPARTMENT: The quadriceps tendon is intact. The patellar ligament is intact. There is full-thickness thinning of the retropatellar cartilage over most of the medial facet. Milde r narrowing of the retropatellar cartilage over the lateral facet.There is no intraosseous signal to suggest recent patellar dislocation. There are no patellar retinacular tears. CRUCIATE LIGAMENTS: The anterior cruciate ligament is intact.The posterior cruciate ligament is intac t. MEDIAL COMPARTMENT/MEDIAL MENISCUS: There is myxoid degeneration signal in the posterior horn of the medial meniscus. This does not violate an articular surface. Therefore not tear. Anterior horn is intact. There is significant thinning of the cartilage over the weight-bearing surface of the medial femoral condyle. No osteochondral defect. Marginal osteophyte off the inner aspect of the medial condyle no kaelyn. MEDIAL COLLATERAL LIGAMENT: Intact LATERAL COMPARTMENT/LATERAL MENISCUS: There is complex tear of the posterior horn of the lateral meni scus. Meniscal root is torn.There is cartilage thinning over the weight-bearing surface of the later al femoral condyle. There is also an osteochondral defect towards the anterior weight-bearing surfac e of the lateral femoral condyle which measures 8 millimeters wide by 10 millimeters AP a by 2 millim eter the. There is subjacent bone edema. Marginal osteophytes ILIOTIBIAL BAND: Intact LATERAL COLLATERAL LIGAMENT COMPLEX: The fibular collateral ligament is intact. The biceps femoris t endon is intact.There is partial tearing of the popliteus muscle with a 2.8 by 1.0 cm associated amanda allan in the lower aspect of the musculotendinous junction of this structure. The actual tendon is in tact IMPRESSION: 1. There is a complex tear of the posterior horn of the lateral meniscus, also involving the root. T here is signal abnormality in the medial meniscus but does not appear to be true tear 2. Degenerative changes are noted lateral compartments, more so lateral than medial where there also appears to be an 8 millimeter wide osteochondral defect on the anterior weight-bearing surface of the lateral condyle. 3. An anterior posterior cruciate ligaments are intact. 4. There is tearing at the inferior aspect of the musculotendinous junction of the popliteus componen t of the lateral collateral ligament complex. 5. Multiple degenerative subarticular cysts are noted in the posterior tibial plateau subjacent to t he PCL insertion site. DATA REPOSITORY:
== END 2021-11-13 02:56 ==
PROVIDERS: PCP Nurse Practitioner Family; Visit Provider Student in an Organized Health Care Education/Training Program
DX: M25.562 Pain in left knee (principal); M17.12 Unilateral primary osteoarthritis, left knee; M25.462 Effusion, left knee; M66.0 Rupture of popliteal cyst; S83.272A Complex tear of lateral meniscus, current injury, left knee, initial encounter; X58.XXXA Exposure to other specified factors, initial encounter
CPT/HCPCS: 73721

== ENCOUNTER → 2022-02-18 09:21 | Outpatient (BNVA) | payer MEDICARE, SELFPAY | PROVIDERS: PCP Nurse Practitioner Family; Referring Provider Nurse Practitioner Family; Visit Provider Student in an Organized Health Care Education/Training Program | DX: X58.XXXA Exposure to other specified factors, initial encounter (principal); S83.282A Other tear of lateral meniscus, current injury, left knee, initial encounter; M17.12 Unilateral primary osteoarthritis, left knee | CPT/HCPCS: 99212 ==

== ENCOUNTER → 2022-07-23 08:09 | Outpatient (BNVA) | payer MEDICARE, SELFPAY | PROVIDERS: PCP Nurse Practitioner Family; Referring Provider Nurse Practitioner Family; Visit Provider Student in an Organized Health Care Education/Training Program | DX: X58.XXXA Exposure to other specified factors, initial encounter (principal); S83.282A Other tear of lateral meniscus, current injury, left knee, initial encounter; M17.12 Unilateral primary osteoarthritis, left knee | CPT/HCPCS: 99213 ==

== ENCOUNTER 2022-10-05 02:19 | Outpatient (CLI) | payer MEDICARE, SELFPAY ==
--- NOTE | 2022-10-05 07:30 | DI.US_ITS ---
APPROVED REPORT EXAM: Comprehensive 2D, Doppler, and color-flow Echocardiogram Patient Location: Out-Patient Dairy Farmworker: Latisha Min RDCS (AE) Indications: Dilated ascending aorta, Mitral regurgitation Other Information Study Quality: Adequate Conclusion Normal left ventricular wall thickness and chamber size. Estimated ejection fraction is 60%. Wall m otion is normal Normal right ventricular size and systolic function Both atria are normal in size Trileaflet aortic valve with mild regurgitation Normal mitral valve with mild regurgitation Normal tricuspid valve with mild regurgitation. Estimated right ventricular systolic pressure is 22 mmHg Dilated ascending aorta measuring 4.09 cm Wall motion Left Ventricle The left ventricle is normal size. The left ventricular systolic function is normal. The left ventric ular ejection fraction is within the normal range. There is normal left ventricular wall thickness. T here is normal LV segmental wall motion. There is no ventricular septal defect visualized. LVEF is 58 %. Right Ventricle The right ventricle is normal size. The right ventricular systolic function is normal. The RVSP is 21 .9mmHg. Atria The left atrium size is normal. The right atrium size is normal. The interatrial septum is intact wit h no evidence for an atrial septal defect. Aortic Valve The aortic valve is normal in structure. Aortic valve is trileaflet. There is no aortic valvular sten osis. Mild aortic regurgitation. Mitral Valve The mitral valve is normal in structure. No evidence of mitral valve stenosis. Mild mitral regurgitat ion. Tricuspid Valve The tricuspid valve is normal in structure. There is no tricuspid valve stenosis. Mild tricuspid regu rgitation. Pulmonic Valve The pulmonary valve is normal in structure. There is no pulmonic valvular stenosis. There is no pulmo marlon valvular regurgitation. Great Vessels The aortic root is normal in size. The ascending aorta is moderately dilated. Aortic arch is not well visualized. IVC is normal in size and collapses >50% with inspiration. Pericardium There is no pericardial effusion. 2D Dimensions IVSD d PLAX 1.05 cm M: 0.6-1.2 LV Vol A2C d MOD 101.4 mL LVPW d PLAX 1.02 cm M: 0.6 - 1.2 LV Vol A4C d MOD 111.7 mL LVID d PLAX 4.68 cm M: 4.2 - 5.8 LA vol/ BSA A2C s A-L 22.4 mL/m2 LVDs 3.20 cm M: 2.5 - 4.0 LA vol/ BSA A4C s A-L 19.5 mL/m2 Ao Root d 3.23 cm M: 3.1 - 3.7 LA Vol/ BSA Biplane s A-L 21.4 mL/m2 RA Area A4C 14.67 cm2 LA Area A4C s MOD 14.74 cm2 RA Vol/ BSA A4C s A-L 18.6 mL/m2 LA Area A2C s MOD 16.22 cm2 Ao Asc Diam d 4.09 cm M: 2.6 - 3.4 LV EF A4C MOD 58.1 % LV EF Teichholz 58.2 % LV EF A2C MOD 58.2 % LVEF (Peterson's) 58.75 % M: 52 - 72 LV EF Biplane MOD 58.8 % LV Volume 82.60 mL M: 62 - 150 SV 64.02 mL LV Volume Index 42.57 mL/m2 M: 34 - 74 SV Index 33.04 mL/m2 LV Vol Biplane MOD 109.0 mL FS 30.60 % M-Mode TAPSE 1.83 cm (M/F) >1.7 LV Diastology MV E' medial 0.053 (>0.07 m/s) E/A Ratio 0.5 LV E/e MED 8.10 (<14) MV E Vmax 0.43 (0.4-1.3 m/s) MV E' lateral 0.065 (>0.1 m/s) MV A Vmax 0.80 (0.4-1.3 m/s) LV E/e LAT 6.60 (<14) MV E/A Ratio 0.53 MV E/E' medial 8.10 MV E/E' lateral 6.63 Aortic Valve LVOT Area 2.81 cm2 AoV Area Vmax 1.80 cm2 LVOT Vmax 0.97 m/s AoV Area/ BSA (Vmax) 0.93 cm2/m2 LVOT Mean Tony. 0.64 m/s LAZARO Mean Tony. 1.82 cm2 LVOT Peak Grad 3.8 mmHg LAZARO Mean Tony. Index 0.94 cm2/m2 LVOT Mean Grad 1.9 mmHg AR DT 2798 msec LVOT VTI 0.190 m AR PHT 812 msec LVOT Diam s 1.85 cm AoV Vmax 1.52 m/s Velocity Ratio 0.64 AoV Mean Tony. 0.98 m/s AoV Peak Grad 9.3 mmHg LVOT SV 53.48 mL AoV Mean Grad 4.7 mmHg AoV VTI 0.268 m AoV Area VTI 2.00 cm2 AoV Area/ BSA (VTI) 1.03 cm/m2 Mitral Valve MV DT 262 (160-240 msec) MV PHT 76 msec MV Area PHT 2.89 cm2 Pulmonary Valve PV Vmax 0.92 (0.5-1.5 m/s) RVOT Peak Gr. 1.44 mmHg PV Peak Grad 3.4 mmHg RVOT Mean Gr. 0.75 mmHg PV Mean Grad 1.6 mmHg RVOT VTI 0.113 m PV VTI 0.147 m RVOT Vmax 0.60 m/s Tricuspid Valve TR Peak Grad 18.9 mmHg TR Vmax 2.18 m/s RA Pressure 3.00 mmHg RVSP (TR) 21.9 mmHg
== END 2022-10-05 02:39 ==
LOC: DI 02:19
PROVIDERS: PCP Nurse Practitioner Family; Visit Provider Internal Medicine Cardiovascular Disease
DX: I34.0 Nonrheumatic mitral (valve) insufficiency (principal)
CPT/HCPCS: 93306

== ENCOUNTER → 2022-10-12 08:21 | Outpatient (BNVA) | payer MEDICARE, SELFPAY | PROVIDERS: PCP Nurse Practitioner Family; Referring Provider Nurse Practitioner Family; Visit Provider Student in an Organized Health Care Education/Training Program | DX: M19.011 Primary osteoarthritis, right shoulder (principal); M19.012 Primary osteoarthritis, left shoulder | CPT/HCPCS: 20610; 99213; J1030 ==

== ENCOUNTER → 2022-12-13 10:37 | Outpatient (BNVA) | payer MEDICARE, SELFPAY | PROVIDERS: PCP Nurse Practitioner Family; Referring Provider Nurse Practitioner Family; Visit Provider Nurse Practitioner Gerontology | DX: R39.89 Other symptoms and signs involving the genitourinary system (principal); N40.1 Benign prostatic hyperplasia with lower urinary tract symptoms | CPT/HCPCS: 51798; 99214 ==

== ENCOUNTER → 2023-03-14 10:27 | Outpatient (BNVA) | payer MEDICARE, SELFPAY | PROVIDERS: PCP Nurse Practitioner Family; Referring Provider Nurse Practitioner Family; Visit Provider Nurse Practitioner Gerontology | DX: R39.89 Other symptoms and signs involving the genitourinary system (principal) | CPT/HCPCS: 51798; 99213 ==

== ENCOUNTER 2023-06-03 09:44 | Outpatient (REF) | payer MEDICARE, SELFPAY ==
[2023-06-03 15:25] LABS: HCT 44.5 % (40.0-50.0); MCH 31.1 pg (27.0-33.0); MCV 87 fL (80-95); MPV 9.5 fL (8.0-11.0); Platelet Count 207 10^3/uL (130-400); RBC 5.14 10^6/uL (4.36-5.78); RDW 12.2 % (11.8-14.1); WBC 5.34 10^3/uL (4.4-10.8)
[2023-06-03 15:58] LABS: ALT 35 U/L (16-63); AST 31 U/L (15-37); Albumin 4.3 g/dL (3.4-5.0); Alkaline Phosphatase 87 U/L (46-116); Anion Gap 8.7 mmol/L (3-11); BUN 25 mg/dL (7-18); Bilirubin, Total 0.5 mg/dL (0.2-1.0); CO2 26.3 mmol/L (21.0-32.0); CREATININE 1.2 mg/dL (0.70-1.30); Calcium 9.4 mg/dL (8.5-10.1); Chloride 105 mmol/L (98-107); Glucose 108 mg/dL (74-106); Magnesium 2.2 mg/dL (1.8-2.4); Potassium 4.2 mmol/L (3.5-5.1); Sodium 140 mmol/L (136-145); TSH 3.07 uIU/mL (0.36-3.74); Total Protein 7.1 g/dL (6.4-8.2)
[2023-06-03 16:35] LABS: Hemoglobin A1C 5.3 % (<5.7)
[2023-06-03 23:01] LABS: PSA, Screening 2.1 ng/mL (<=6.5)
== END 2023-06-03 09:45 | disposition home or self-care (01) ==
LOC: NCHCN 09:44
PROVIDERS: PCP Nurse Practitioner Family; Visit Provider Nurse Practitioner Family
DX: E03.9 Hypothyroidism, unspecified (principal); R05.3 Chronic cough; I10 Essential (primary) hypertension; R73.09 Other abnormal glucose; Z12.5 Encounter for screening for malignant neoplasm of prostate; N40.1 Benign prostatic hyperplasia with lower urinary tract symptoms
CPT/HCPCS: 80053; 84153; 85027; 83036; 83735; 84443

== ENCOUNTER → 2023-10-05 08:50 | Outpatient (BNVA) | payer MEDICARE, SELFPAY | PROVIDERS: PCP Nurse Practitioner Family; Referring Provider Nurse Practitioner Family; Visit Provider Nurse Practitioner Gerontology | DX: N40.1 Benign prostatic hyperplasia with lower urinary tract symptoms (principal); R39.12 Poor urinary stream | CPT/HCPCS: 51798; 99213 ==

== ENCOUNTER 2023-10-10 08:37 | Outpatient (CLI) | payer MEDICARE, SELFPAY ==
--- NOTE | 2023-10-10 08:30 | RT.EKG_ITS ---
APPROVED REPORT Exam: Resting ECG Reason for Exam: as Patient Location: O HR:64 bpm ECG Measurements Heart Rate 64 AXIS AZ 180 P 36 QRSd 108 QRS -4 QT 389 T 41 QTc 402 Conclusion Sinus rhythm...normal P axis, V-rate 50- 99 Atrial premature complex...SV complex w/ short R-R interval I have reviewed and interpreted ECG and agree with software generated interpretation.
== END 2023-10-10 08:38 | disposition home or self-care (01) ==
LOC: DI.CARD 08:40
PROVIDERS: PCP Nurse Practitioner Family; Visit Provider Internal Medicine Interventional Cardiology
DX: I34.0 Nonrheumatic mitral (valve) insufficiency (principal); I77.810 Thoracic aortic ectasia
CPT/HCPCS: 93010

== ENCOUNTER → 2023-10-10 13:03 | Outpatient (BNVA) | payer MEDICARE, SELFPAY | PROVIDERS: PCP Nurse Practitioner Family; Referring Provider Nurse Practitioner Family; Visit Provider Internal Medicine Interventional Cardiology | DX: I77.810 Thoracic aortic ectasia (principal); I34.0 Nonrheumatic mitral (valve) insufficiency; I10 Essential (primary) hypertension | CPT/HCPCS: 93005; 99213 ==

== ENCOUNTER 2024-01-16 09:35 | Outpatient (CLI) | payer OTHER, SELFPAY ==
[2024-04-16 15:01] LABS: ALT 32 U/L (16-63); AST 22 U/L (15-37)
== END 2024-01-16 09:36 | disposition home or self-care (01) ==
LOC: LBO 04-23 09:36
PROVIDERS: PCP Nurse Practitioner Family; Visit Provider Dermatology
DX: Z79.899 Other long term (current) drug therapy (principal)
CPT/HCPCS: 36415; 84450; 84460

== ENCOUNTER 2024-03-05 08:18 | Day surgery (SDC) | payer OTHER, SELFPAY ==
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
[2024-03-05 08:45] VITALS: BP 149/82; PULSE 67; RESP 16; TEMP 36.4; O2SAT 95
[2024-03-05 09:03] VITALS: BMI 25.8
[2024-03-05] MEDS: Lactated Ringers 1,000 ML 80 ML IV (09:11)
--- NOTE | 2024-03-05 09:19 | COLE_ITS ---
Date of service: 03/05/24 Time of Service: 09:19 Colonoscopy Report Procedure Description: PROCEDURES PERFORMED: 1. Colonoscopy PREOPERATIVE DIAGNOSIS: Surveillance colonoscopy POSTOPERATIVE DIAGNOSIS: Sigmoid diverticulosis SURGEON: Sheba Perry MD INDICATION FOR PROCEDURE: the patient is a 78-year-old man due for screening/surveillance colonoscopy. He denies any symptoms. He says he has never had any polyps on his prior colonoscopies. He has no family history of colon cancer. FINDINGS: Normal terminal ileum. No polyps. No inflammation. There are diverticular changes in the sigmoid colon only. There is a mild amount of fibrosis appreciated but no obvious active inflammation. No significant hemorrhoid disease. SURVEILLANCE interval/FOLLOW-UP: Can consider a repeat colonoscopy in 10 years if still healthy with a good life expectancy at that time. SPECIMENS: None EBL: Minimal COMPLICATIONS: None QUALITY of prep: Excellent Procedure in detail: The patient gave written consent and was in agreement with the indications, the potential risks as well as the benefits of the procedure. They were taken to the endoscopy suite and laid in the left lateral decubitus position. A timeout was performed and anesthesia was administered which was jocelyn erated well. I started the procedure. Digital rectal and visual examination was performed and grossly within normal limits. A well-lubricated flexible colonoscope was then introduced and passed without any notable difficulty all the way to the cecum identified by the ileocecal valve and the appendiceal orifice. The terminal ileum was intubated and looked normal. The scope was then slowly withdrawn with the above-noted findings. The patient tolerated the procedure well and was taken to the PACU in hemodynamically stable condition.
--- NOTE | 2024-03-05 09:22 | W.PM.DSUDISC ---
Date of service: 03/05/24 Time of Service: 09:22 Discharge Plan Disposition Patient Disposition: Home Condition: Good Discharge Details Attending Provider: Malvin Perry Primary Care Provider: Amarilis Barrios Home Meds and New Rx's Prescriptions: No Action tamsulosin [Flomax] 0.4 mg capsule 0.4 mg PO DAILY Qty: 90 3RF ibuprofen 800 mg tablet 800 mg PO PRN [id number]-[id number]-C-melisa-[id number] 500-416.6-20 mg tablet 1 tab PO DAILY omeprazole 20 mg capsule,delayed release(DR/EC) 20 mg PO .complex Rx Instructions: , tue, . Just 3x a week. bisacodyl [Dulcolax (bisacodyl)] 5 mg tablet,delayed release (DR/EC) 5 mg PO ONCE Qty: 4 0RF Rx Instructions: Take per colonoscopy instructions provided by ordering providers office polyethylene glycol 3350 17 gram/dose powder 17 g PO ONCE Qty: 238 0RF Rx Instructions: Take per colonoscopy instructions provided by ordering providers office Shingrix (PF) 50 mcg/0.5 mL suspension for reconstitution 0.5 ml IM ONCE Patient Comments: pt. thinks it was about 2 months ago Rx Instructions: as a single dose rosuvastatin 40 mg tablet 40 mg PO DAILY trazodone 50 mg tablet 50 mg PO QHS ketoconazole 2 % cream 1 applic topical BID levothyroxine 75 mcg capsule 75 mcg PO DAILY losartan-hydrochlorothiazide 50-12.5 mg tablet 1 tab PO DAILY acetylcysteine [NAC] 600 mg capsule 600 mg PO BID mirtazapine 7.5 mg tablet 45 mg PO DAILY Discharge Instructions Additional Instructions: FINDINGS: We did not find any polyps or any concerning processes today. Your colon appears quite healthy overall. You have some mild diverticular disease in your sigmoid colon. This is an extremely common, benign condition that, in general, does not require any intervention. You should consider repeating another colonoscopy in 10 years, at the age of 88, if you are still healthy with a good life expectancy at that time. That decision can be made at that time. Stand Alone Forms: Anesthesia Discharge Inst., Colonoscopy Post Instructions, Thang Alfaro (DSU) Activity:: Activity as Tolerated Diet:: As Tolerated
[2024-03-05 09:50] VITALS: BP 119/86; PULSE 66; RESP 16; TEMP 35.9; O2SAT 96
--- NOTE | 2024-03-05 10:24 | W.ANESPOSTOP ---
Postoperative Evaluation Date, Time and Location Date Performed: 03/05/24 Time Performed: 10:22 Patient Location: Day Surgery Unit Vital Signs Most Recent Imported Vital Signs: Most Recent Vital Signs Temp Pulse Resp BP Pulse Ox 35.9 C L 66 16 119/86 96 03/05/24 09:50 03/05/24 09:50 03/05/24 09:50 03/05/24 09:50 03/05/24 09:50 Pain Score Most Recent Pain Score: Most Recent Pain Score Pain Level 0 03/05/24 09:50 Assessment Mental Status: Awake (Alert & Oriented to Patient Baseline) Airway and Respiratory Function: Patent airway with normal (patient baseline) respiratory exam Cardiovascular Function: Hemodynamically Stable Hydration Status: Adequately Hydrated Nausea & Vomiting: No Nausea or Vomiting Pain: Pt. Denies Any Pain Peripheral Nerve Block: Patient did not receive a nerve block
[2024-03-05 10:26] VITALS: BP 143/88; PULSE 70; RESP 16; TEMP 36.4; O2SAT 95
== END 2024-03-05 10:34 | disposition home or self-care (01) ==
LOC: SUR 08:19
PROVIDERS: PCP Nurse Practitioner Family; Visit Provider Student in an Organized Health Care Education/Training Program
PROC: 0DJD8ZZ Inspection of Lower Intestinal Tract, Via Natural or Artificial Opening Endoscopic (ICD-10-PCS; CPT 45378; principal; 2024-03-05 09:30)
DX: Z12.11 Encounter for screening for malignant neoplasm of colon (principal); K57.30 Diverticulosis of large intestine without perforation or abscess without bleeding
CPT/HCPCS: G0121; 00123; J2001; J2704

== ENCOUNTER → 2024-05-23 09:58 | Outpatient (BNVA) | payer MEDICARE, SELFPAY | PROVIDERS: PCP Nurse Practitioner Family; Visit Provider Nurse Practitioner Gerontology | DX: N40.1 Benign prostatic hyperplasia with lower urinary tract symptoms (principal); R39.11 Hesitancy of micturition | CPT/HCPCS: 51798; 99213 ==

== ENCOUNTER 2024-09-10 08:58 | Outpatient (REF) | payer MEDICARE, SELFPAY ==
[2024-09-10 16:06] LABS: ALT 28 U/L (16-63); AST 25 U/L (15-37); Albumin 4.3 g/dL (3.4-5.0); Alkaline Phosphatase 91 U/L (46-116); BUN 27 mg/dL (7-18); Bilirubin, Total 0.67 mg/dL (0.2-1.0); CREATININE 1.3 mg/dL (0.70-1.30); Calcium 9.4 mg/dL (8.5-10.1); Chloride 105 mmol/L (98-107); Estimated GFR 55.88 (mL/min/1.73m2); Glucose 78 mg/dL (74-106); Potassium 4.7 mmol/L (3.5-5.1); Sodium 143 mmol/L (136-145); TSH 1.88 uIU/mL (0.36-3.74)
== END 2024-09-10 08:59 | disposition home or self-care (01) ==
LOC: NCHCN 08:58
PROVIDERS: PCP Nurse Practitioner Family; Visit Provider Nurse Practitioner Family
DX: E03.9 Hypothyroidism, unspecified (principal)
CPT/HCPCS: 80053; 84443

== ENCOUNTER → 2024-10-08 14:29 | Outpatient (BNVA) | payer MEDICARE, SELFPAY | PROVIDERS: PCP Nurse Practitioner Family; Visit Provider Registered Nurse | DX: I10 Essential (primary) hypertension (principal); I77.810 Thoracic aortic ectasia | CPT/HCPCS: 99214 ==

== ENCOUNTER 2024-10-24 10:37 | Outpatient (REF) | payer MEDICARE, SELFPAY ==
[2024-10-24 15:41] LABS: Anion Gap 6.9 mmol/L (3-11); BUN 29 mg/dL (7-18); CO2 29.1 mmol/L (21.0-32.0); CREATININE 1.4 mg/dL (0.70-1.30); Calcium 9.2 mg/dL (8.5-10.1); Chloride 105 mmol/L (98-107); Estimated GFR 51.13 (mL/min/1.73m2); Glucose 67 mg/dL (74-106); Potassium 3.9 mmol/L (3.5-5.1); Sodium 141 mmol/L (136-145)
== END 2024-10-24 10:38 | disposition home or self-care (01) ==
LOC: NCHCN 10:37
PROVIDERS: PCP Nurse Practitioner Family; Visit Provider Nurse Practitioner Family
DX: R79.89 Other specified abnormal findings of blood chemistry (principal)
CPT/HCPCS: 80048

== ENCOUNTER 2024-11-27 01:53 | Outpatient (CLI) | payer MEDICARE, SELFPAY ==
--- NOTE | 2024-11-27 | DI.US_ITS ---
Exam(s) US RENAL EXAM: US RENAL CLINICAL HISTORY: Serum creatinine above reference range, R79.89-other specified abnl finding. TECHNIQUE: Zhao scale, color and spectral Doppler were used. COMPARISON: CT CT CHEST/ABD/PEL W from 10/16/2018 FINDINGS: Renal size in cm: Right: 9.5. Left: 12.1. Echogenicity: Normal. Hydronephrosis: No. Cyst or mass: There is again seen a small 1.3 cm simple cyst in the inferior pole of the right kidney . No follow-up is recommended. Nephrolithiasis: No. Other findings: None. Bladder:Normal. Ureteral jets: Right: Visualized and unremarkable. Left: Visualized and unremarkable. Prevoid vol:517 cc Postvoid vol:11 cc Prostate: 31 cc Renal color flow: Symmetric and within normal limits. IMPRESSION: 1. No evidence of a solid renal mass, calculus or hydronephrosis. 2. Mildly enlarged prostate gland. DATA REPOSITORY:
== END 2024-11-27 02:13 ==
PROVIDERS: PCP Nurse Practitioner Family; Visit Provider Nurse Practitioner Family
DX: R79.89 Other specified abnormal findings of blood chemistry (principal); N40.1 Benign prostatic hyperplasia with lower urinary tract symptoms
CPT/HCPCS: 76770

== ENCOUNTER → 2025-05-22 09:19 | Outpatient (BNVA) | payer MEDICARE, SELFPAY | PROVIDERS: PCP Nurse Practitioner Family; Visit Provider Nurse Practitioner Gerontology | DX: N40.1 Benign prostatic hyperplasia with lower urinary tract symptoms (principal); R39.11 Hesitancy of micturition; R39.9 Unspecified symptoms and signs involving the genitourinary system | CPT/HCPCS: 99213; 51798; 36415; 84153 ==

== ENCOUNTER 2025-05-22 11:55 | Outpatient (CLI) | payer MEDICARE, SELFPAY ==
[2025-05-22 17:44] LABS: PSA, Diagnostic 2.0 ng/mL (<=6.5)
== END 2025-05-22 11:56 | disposition home or self-care (01) ==
LOC: LBO 11:56
PROVIDERS: PCP Nurse Practitioner Family; Visit Provider Nurse Practitioner Gerontology
DX: N40.0 Benign prostatic hyperplasia without lower urinary tract symptoms (principal)
CPT/HCPCS: 36415; 84153

== ENCOUNTER 2025-07-23 08:54 | Inpatient (IN) | payer MEDICARE, SELFPAY ==
[2025-07-23] VITALS (34 sets, daily range): BP systolic 123–200; BP diastolic 78–114; PULSE 56–74; RESP 13–22; TEMP 36.1–36.6; O2SAT 91–97
--- NOTE | 2025-07-23 09:00 | DI.CT_ITS ---
Exam(s) CT BRAIN NECK CTA EXAM: CT BRAIN NECK CTA CLINICAL HISTORY: R. hand weakness, speech changes, onset 8am, PETERS. TECHNIQUE: Imaging Protocol: Axial CT angiography was performed with multi- slice acquisition and multi-planar and/or 3D reconstructions. CONTRAST MATERIAL: Intravenous: Omnipaque 350 contrast volume:70 mL COMPARISON: CT HEAD WITHOUT CONTRAST from 09/24/[address] HEAD CERVICAL SPINE WO from 10/16/2018 FINDINGS: CT Head W/O and W: Ventricles and Extra axial spaces: Normal in size and morphology for the patient's age. Hemorrhage: None. Cerebral parenchyma: There is decreased attenuation in the white matter most consistent with chronic microvascular ischemic disease. There is an area of decreased attenuation adjacent to the left lateral ventricle in the white matter. This was not definitely appreciated on the prior examination. There is no mass effect. Midline shift: None. Brainstem/Cerebellum: Normal. Calvarium: Normal. Visualized Paranasal sinuses/Mastoids: There is opacification of several ethmoid air cells bilaterally. The remaining visualized paranasal sinuses are clear. Soft Tissues: Unremarkable. Enhancement: Unremarkable. CTA Neck W: Common Carotid: Right: No dissection, occlusion or significant stenosis. Mild atherosclerotic calcification is present. Left: No dissection, occlusion or significant stenosis. 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 External Carotid: Right: No occlusion or significant stenosis. There is mild atherosclerotic calcification but no significant stenosis. Left: No occlusion or significant stenosis. Atherosclerotic calcification is present with less than 50 percent stenosis. Internal Carotid: Right: No dissection, occlusion or significant stenosis. Left: No dissection, occlusion or significant stenosis. There is atherosclerotic calcification at the origin of the left internal carotid artery with less than 50 percent stenosis. Vertebral Artery: Right: No dissection, occlusion or significant stenosis. There is mild atherosclerotic calcification at the origin of the vertebral artery. Left: No dissection, occlusion or significant stenosis. Lung Apices: Normal. Bones: Within normal limits for the patient's age. Soft Tissues: Normal. Thyroid gland: Unremarkable. CTA Brain W: Internal Carotid Arteries: Atherosclerotic calcification is present with less than 50 percent stenosis. No occlusion or aneurysm is seen. Anterior Cerebral Arteries: Right: No aneurysm, occlusion or significant stenosis. Left: No aneurysm, occlusion or significant stenosis. Middle Cerebral Arteries: Right: No aneurysm, occlusion or significant stenosis. Left: No aneurysm, occlusion or significant stenosis. Posterior Cerebral Arteries: Right: No aneurysm, occlusion or significant stenosis. Left: No aneurysm, occlusion or significant stenosis. Vertebral Arteries: Right: No aneurysm, occlusion or significant stenosis. Left: No aneurysm, occlusion or significant stenosis. Mild atherosclerotic calcification is seen distally with less than 50 percent stenosis. Basilar Artery: No aneurysm, occlusion or significant stenosis. IMPRESSION: 1. No large vessel occlusion or significant stenosis on the CT angiography of the head. 2. There is a small area of decreased attenuation adjacent to the left lateral ventricle in the white matter. This is age indeterminate. This may represent an acute infarct. An non-contrast MRI should be considered for further evaluation. 3. There is a small pseudoaneurysm seen in the mid left common carotid artery. 4. No evidence of significant stenosis or occlusion on the CT angiography of the neck. RADIATION DOSE DELIVERED: Total DLP DATA REPOSITORY: All CT scans at this facility are submitted to the National Radiology Data Registry (NRDR) Dose Index Registry (DIR) with the [employer] (ACR). RADIATION OPTIMIZATION: All CT scans at this facility use at least one of these dose optimization techniques: automated exposure control; mA and/or kV adjustment per patient size (includes targeted exams where dose is matched to clinical indication); or iterative reconstruction.
--- NOTE | 2025-07-23 09:00 | RT.EKG_ITS ---
APPROVED REPORT Exam: Resting ECG Reason for Exam: possible stroke Patient Location: E HR:66 bpm ECG Measurements Heart Rate 66 AXIS NV 143 P 34 QRSd 110 QRS -33 QT 400 T 28 QTc 420 Conclusion Sinus rhythm, rate 66 No interval abnormalities No STEMI No significant changes from priors
[2025-07-23 09:19] LABS: Abs Immature Grans 0.01 10^3/uL (0.0-0.06); HCT 45.1 % (40.0-50.0); HGB 16.5 g/dL (13.5-17.5); Immature Grans % 0.2 %; MCH 31.2 pg (27.0-33.0); MCHC 36.6 % (32.0-36.0); MCV 85 fL (80-95); MPV 8.8 fL (8.0-11.0); Platelet Count 195 10^3/uL (130-400); RBC 5.29 10^6/uL (4.36-5.78); RDW 11.9 % (11.8-14.1); RDW-SD 37.1 fL; WBC 6.17 10^3/uL (4.4-10.8)
[2025-07-23] MEDS: Normal Saline Flush 10 ML SYR IVP ×2 (09:21→20:04)
[2025-07-23] MEDS: Omnipaque 350 MG/ML 100 ML BTL IJ (09:22)
[2025-07-23] MEDS: Normal Saline - Diluent 50 ML VIAL IJ (09:22)
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
[2025-07-23 09:36] LABS: INR 1.1 (0.9-1.1); Prothrombin Time 10.9 sec (9.1-11.1)
[2025-07-23] MEDS: ACETAMINOPHEN 1,000 MG/100 ML BAG 400 MG IVPB (09:40)
[2025-07-23 09:48] LABS: ALT 31 U/L (16-63); AST 24 U/L (15-37); Albumin 4.2 g/dL (3.4-5.0); Alkaline Phosphatase 84 U/L (46-116); Anion Gap 8.6 mmol/L (3-11); BUN 23 mg/dL (7-18); Bilirubin, Total 0.7 mg/dL (0.2-1.0); CO2 29.4 mmol/L (21.0-32.0); Calcium 9.4 mg/dL (8.5-10.1); Chloride 103 mmol/L (98-107); Glucose 118 mg/dL (74-106); Magnesium 1.9 mg/dL (1.8-2.4); Potassium 4.1 mmol/L (3.5-5.1); Sodium 141 mmol/L (136-145); Total Protein 7.2 g/dL (6.4-8.2); Troponin I 10 ng/L (<or=76)
--- NOTE | 2025-07-23 10:15 | DI.MRI_ITS ---
Exam(s) MR BRAIN WO EXAM: MR BRAIN WO CLINICAL HISTORY: TIA TECHNIQUE: Multiplanar multisequence MRI of the brain was performed. COMPARISON: CT CT BRAIN NECK CTA from 07/23/2025 FINDINGS: VENTRICLES AND EXTRA AXIAL SPACES: Normal in size and morphology for the patient's age. MIDLINE SHIFT: None. CEREBRAL PARENCHYMA: There are areas of restricted diffusion seen in the left parietal lobe consistent with an acute infarct. The area of decreased attenuation adjacent to the left lateral ventricle likely reflects an old lacuna. No space-occupying lesion identified. There are areas of hyperintense s ignal seen in the white matter on the FLAIR and T2 weighted images consistent with chronic microvascular ischemic disease. HEMORRHAGE: None. BRAINSTEM/CEREBELLUM: Normal. CALVARIUM: Normal. VISUALIZED PARANASAL SINUSES/MASTOIDS:Clear. [place] OF [place]: Normal flow void. PITUITARY GLAND: Unremarkable. OTHER FINDINGS: None. IMPRESSION: There is an acute infarct involving the left parietal lobe. DATA REPOSITORY:
[2025-07-23 10:34] LABS: Troponin I 10 ng/L (<or=76)
[2025-07-23 10:56] LABS: Cholesterol 143 mg/dL (<200); HDL Cholesterol 70 mg/dL (>or=40)
[2025-07-23 10:57] LABS: Hemoglobin A1C 5.3 % (<5.7)
[2025-07-23] MEDS: Aspirin 325 MG TAB PO (11:05)
[2025-07-23] MEDS: Clopidogrel 300 MG TAB PO (11:05)
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
--- NOTE | 2025-07-23 16:04 | PHA.REVIEW2 ---
Pharmacy Admission Review Admission Clinical Review Admission Pharmacy Review: phenelzine sulfate (From Nardil) Allergy (Intermediate, Verified 10/08/24 14:38) Other (See Comment) amlodipine Allergy (Verified 10/08/24 14:38) Dry Mouth lisinopril Allergy (Verified 10/08/24 14:38) Cough venlafaxine Allergy (Verified 10/08/24 14:38) Denies codeine Adverse Reaction (Mild, Verified 10/08/24 14:38) nausea can tolerate MAOI CLASS Allergy (Uncoded 03/05/24 08:38) LOC Resuscitation Status Full Code Height 5 ft 9 in Weight 77.111 kg Pharmacy Admission Review Renal Dosing Renal Dosing: BUN 23 mg/dL (7-18) H 07/23/25 09:05 Creatinine 1.2 mg/dL (0.70-1.30) 07/23/25 09:05 Medications needing adjustments: Reviewed (CrCl 53.55 mL/min) List of meds needing interventions: Current medications are okay Anticoagulation Anticoagulation: Hgb 16.5 g/dL (13.5-17.5) 07/23/25 09:05 Hct 45.1 % (40.0-50.0) 07/23/25 09:05 Plt Count 195 10^3/uL (130-400) 07/23/25 09:05 INR 1.1 (0.9-1.1) 07/23/25 09:05 Creatinine 1.2 mg/dL (0.70-1.30) 07/23/25 09:05 DVT Prophylaxis: Reviewed Medications: Enoxaparin (40mg daily) Relevant Labs Relevant Labs: Sodium 141 mmol/L (136-145) 07/23/25 09:05 Potassium 4.1 mmol/L (3.5-5.1) 07/23/25 09:05 Chloride 103 mmol/L (98-107) 07/23/25 09:05 Magnesium 1.9 mg/dL (1.8-2.4) 07/23/25 09:05 Electrolytes, C-Reactive P, ESR: Reviewed DM Control DM Control: Glucose 118 mg/dL (74-106) H 07/23/25 09:05 Hemoglobin A1c 5.3 % (<5.7) 07/23/25 09:05 Finger Stick Blood Glucose 117 Finger Stick Blood Glucose 117 DM Control: N/A (no diagnosis of diabetes) Cardiac Review Cardiac Review: Troponin I Cancelled 07/23/25 12:12 Blood Pressure 123/80 1539 Blood Pressure 161/103 1244 Blood Pressure 155/95 1231 Blood Pressure 141/97 1217 Blood Pressure 175/80 1146 Blood Pressure 177/106 1131 Blood Pressure 162/87 1001 Blood Pressure 157/85 0946 Blood Pressure 158/94 0941 Blood Pressure 173/107 0916 Blood Pressure 200/114 0858 BP, HR, EF%: Reviewed (HR WNL) List meds needing interventions: Has orders for HCTZ 12.5mg daily and losartan 50mg daily QTc Review QTc: Reviewed (420 from 07/23/25) IV to PO Switch IV Medications: Reviewed Home Meds Home Med List reviewed: Intervened Relevent Home Meds Not ordered & why?: glucosamine and ketoconazole cream Provider put in order for Shingrix vaccine from patients home med list. Reached out to clarify if they actually wanted vaccine given to patient. Provider asked that the order be canceled. Current Meds Current Medication Order Review: Intervened Comments: Changed IV ED access order Changed ibuprofen order from PRN GT to PRN PRN
[2025-07-23 17:57] LABS: Lab Add On Test DONE
[2025-07-23 18:23] LABS: TSH 3.26 uIU/mL (0.36-3.74)
[2025-07-23] MEDS: Mirtazapine 15 MG TAB 45 MG PO (20:04)
[2025-07-23] MEDS: Acetylcysteine 600 MG CAP PO (20:04)
[2025-07-23] MEDS: Melatonin 3 MG TAB 6 MG PO (20:04)
[2025-07-24 03:30] VITALS: BP 139/84; PULSE 63; RESP 17; TEMP 36; O2SAT 95
[2025-07-24] MEDS: Acetaminophen 325 MG TAB 650 MG PO (03:33)
[2025-07-24] MEDS: Levothyroxine 75 MCG TAB PO (06:36)
[2025-07-24 07:44] VITALS: BP 130/84; PULSE 62; RESP 16; TEMP 36.7; O2SAT 94
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
[2025-07-24] MEDS: Rosuvastatin 20 MG TAB 40 MG PO (09:27)
[2025-07-24] MEDS: Enoxaparin 40 MG/0.4 ML SYR SC (09:28)
[2025-07-24] MEDS: Clopidogrel 75 MG TAB PO (09:28)
[2025-07-24] MEDS: Tamsulosin 0.4 MG CAPCR 0.8 MG PO (09:28)
[2025-07-24] MEDS: Acetylcysteine 600 MG CAP PO (09:28)
[2025-07-24] MEDS: Aspirin 81 MG CHEW PO (09:28)
[2025-07-24] MEDS: Normal Saline Flush 10 ML SYR IVP (09:29)
[2025-07-24] MEDS: Omeprazole 20 MG CAPCR PO (10:19)
[2025-07-24] MEDS: Calcium Carbonate *TUMS* 500 MG CHEW 1000 MG PO (11:03)
[2025-07-24 11:19] VITALS: BP 147/92; PULSE 65; RESP 16; TEMP 36.7; O2SAT 96
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
--- NOTE | 2025-07-24 14:39 | PDOC.CMDIS ---
Date of service: 07/24/25 Time of Service: 14:39 LACE Index Scoring Tool Questions: Length of Stay (in days): 1 Was the patient admitted via the E.D.?: Yes Comorbidities: Cerebrovascular Disease E.D. Visits: 1 Answers: Total Score: 6 Risk of Readmission: Low Risk Care Management Discharge Plan Reason for Hospitalization: stroke Discharge Plan: Javier is discharging this afternoon with no new services. He has been up and walking and his steady on his feet and appears to have no real defecits. Ajith feels very chayito. Javier has been referred to [facility] – [place] and he will f/u with his PCP and continue per his plan of care. Javier was driven home by his . Patient/Family Education Needs: Review of discharge instructions, activity and discuss Ask me 3
== END 2025-07-24 14:08 | disposition home or self-care (01) | DRG 65 ==
LOC: ER 12:21 → MS 12:45
PROVIDERS: Admitting Provider Family Medicine; Emergency Provider Emergency Medicine; PCP Nurse Practitioner Family; Responsible Provider Nurse Practitioner Family; Visit Provider Family Medicine
DX: I63.89 Other cerebral infarction (principal); I10 Essential (primary) hypertension; E03.9 Hypothyroidism, unspecified; F41.9 Anxiety disorder, unspecified; N40.0 Benign prostatic hyperplasia without lower urinary tract symptoms; F13.20 Sedative, hypnotic or anxiolytic dependence, uncomplicated; E78.5 Hyperlipidemia, unspecified; G89.29 Other chronic pain; F43.10 Post-traumatic stress disorder, unspecified; I34.0 Nonrheumatic mitral (valve) insufficiency; M17.12 Unilateral primary osteoarthritis, left knee; I77.810 Thoracic aortic ectasia; M19.011 Primary osteoarthritis, right shoulder; M19.012 Primary osteoarthritis, left shoulder; F32.A Depression, unspecified; G47.33 Obstructive sleep apnea (adult) (pediatric); M54.42 Lumbago with sciatica, left side; R47.1 Dysarthria and anarthria; Z79.899 Other long term (current) drug therapy
CPT/HCPCS: 00123; 36415; 36416; 70496; 70498; 80053; 80061; 82962; 93005; 96374; 97162; 99285; J1650; 70551; 83036; 83735; 84443; 84484; 85025; 85610; 93010; 93306; 99222; 99239; J0131; J3490

== ENCOUNTER 2025-07-24 13:39 | Outpatient (CLI) | payer MEDICARE, SELFPAY | END 2025-07-24 13:40 | disposition home or self-care (01) | PROVIDERS: PCP Nurse Practitioner Family; Visit Provider Nurse Practitioner Family | DX: Z86.73 Personal history of transient ischemic attack (TIA), and cerebral infarction without residual deficits (principal) | CPT/HCPCS: 93270 ==

== ENCOUNTER 2025-08-27 12:04 | Outpatient (CLI) | payer MEDICARE, SELFPAY ==
--- NOTE | 2025-08-27 08:48 | W.CARDEVENT ---
Date of service: 08/27/25 Time of Service: 08:48 Cardiac Event Recorder Referring Provider:: Wen Nevarez Indications:: Stroke Cardiac Event Note: This is a cardiac event monitor. Patient was monitored for 22 days and 19 hours Rhythm throughout was sinus. Average heart rate was 74. Minimum was 77, maximum 113 There were rare ventricular ectopic beats. There was 1 brief run of nonsustained ventricular tachycardia 5 beats in duration There were rare atrial premature beats There was no atrial fibrillation, no high-grade AV block, no pauses greater than 3 seconds. There were no apparent symptoms
== END 2025-08-27 12:05 | disposition home or self-care (01) ==
LOC: CARDOPNVT 12:04
PROVIDERS: PCP Nurse Practitioner Family; Visit Provider Internal Medicine Cardiovascular Disease
DX: I63.89 Other cerebral infarction (principal); I47.29 Other ventricular tachycardia
CPT/HCPCS: 93272

== ENCOUNTER 2025-09-04 11:43 | Outpatient (CLI) | payer MEDICARE, SELFPAY ==
--- NOTE | 2025-09-04 11:30 | RT.EKG_ITS ---
APPROVED REPORT Exam: Resting ECG Reason for Exam: mitral regurg Patient Location: O HR:65 bpm ECG Measurements Heart Rate 65 AXIS VT 174 P 15 QRSd 106 QRS -13 QT 407 T 30 QTc 424 Conclusion Sinus rhythm...normal P axis, V-rate 50- 99 Normal Electrocardiogram
== END 2025-09-04 11:44 | disposition home or self-care (01) ==
LOC: DI.CARD 11:44
PROVIDERS: PCP Nurse Practitioner Family; Visit Provider Registered Nurse
DX: I34.0 Nonrheumatic mitral (valve) insufficiency (principal); I77.810 Thoracic aortic ectasia
CPT/HCPCS: 93010

== ENCOUNTER → 2025-09-04 14:01 | Outpatient (BNVA) | payer MEDICARE, SELFPAY | PROVIDERS: PCP Nurse Practitioner Family; Referring Provider Nurse Practitioner Family; Visit Provider Registered Nurse | DX: I34.0 Nonrheumatic mitral (valve) insufficiency (principal); I77.810 Thoracic aortic ectasia; Z01.810 Encounter for preprocedural cardiovascular examination; I10 Essential (primary) hypertension; Z79.01 Long term (current) use of anticoagulants; Z79.899 Other long term (current) drug therapy | CPT/HCPCS: 99214; 93005 ==